=== PATIENT | male | born 1955 | race Caucasian/White ===

== ENCOUNTER 2016-10-16 07:44 | Day surgery (SDC) | payer OTHER ==
[2016-10-10 12:26] VITALS: BMI 37.2
[2016-10-16] MEDS ORDERED: PROPOFOL 20 ML ONE ×3 (08:13→09:29)
[2016-10-16] MEDS ORDERED: LIDOCAINE HCL/PF 2% SDV 5ML VIAL ONE (08:25)
[2016-10-16 09:55] VITALS: PULSE 75; TEMP 97.2
[2016-10-16 10:52] VITALS: BP 108/73
--- NOTE | 2016-10-17 13:37 | PATH ---
Surgical Pathology Report Patient Name: GURDEEP TSAI [facility]. Rec. #: [id number] /Age/Gender: 1955 (Age: 61) / M Account: [id number] Location: [facility] Taken: 10/16/2016 Received: 10/16/2016 Reported: 10/17/2016 Physicians: Barak Lipscomb M.D. Specimen(s) Received A: BX DUODENUM B: BX ANTRUM C: BX CECUM D: BX SIGMOID Clinical History Peptic ulcer disease, constipation Right upper quadrant pain, rule out celiac disease, gastritis, colonic polyps Final Diagnosis A. DUODENUM, BIOPSY: DUODENAL MUCOSA WITH NO PATHOLOGIC CHANGES. NO HISTOLOGIC EVIDENCE OF GLUTEN SENSITIVE ENTEROPATHY (CELIAC SPRUE) IDENTIFIED. B. STOMACH, ANTRUM, BIOPSY: MODERATE TO SEVERE CHRONIC ACTIVE GASTRITIS. IMMUNOSTAIN FOR H. PYLORI IS POSITIVE (MANY ORGANISMS). C. COLON, CECUM, BIOPSY: COLONIC MUCOSA WITH NO PATHOLOGIC CHANGES. D. COLON, DISTAL SIGMOID, BIOPSY: HYPERPLASTIC POLYP. Electronically Signed Patrick Damon M.D. Gross Description A. Received in formalin, labeled "duodenum" are 2 mcfarlane, irregular portions of soft tissue measuring 0.4 and 0.5 cm. in greatest dimension. The specimens are submitted in toto in one cassette. B. Received in formalin, labeled "antrum" are 2 mcfarlane, irregular portions of soft tissue measuring 0.3 and 0.4 cm. in greatest dimension. The specimens are submitted in toto in one cassette. C. Received in formalin, labeled "cecum" are 2 mcfarlane, irregular portions of soft tissue averaging 0.2 cm. in greatest dimension. The specimens are submitted in toto in one cassette. D. Received in formalin, labeled "sigmoid" is a mcfarlane, irregular portion of soft tissue measuring 0.7 cm. in greatest dimension. The specimen is submitted in toto in one cassette. 10/16/201610/16/2016
== END 2016-10-16 10:30 | disposition home or self-care (01) ==
LOC: FASU-ENDO 07:44
PROVIDERS: ATTEND Internal Medicine Gastroenterology
PROC: 0DB98ZX Excision of Duodenum, Via Natural or Artificial Opening Endoscopic, Diagnostic (ICD-10-PCS; 2016-10-16)
PROC: 0DB68ZX Excision of Stomach, Via Natural or Artificial Opening Endoscopic, Diagnostic (ICD-10-PCS; 2016-10-16)
PROC: 0DBH8ZX Excision of Cecum, Via Natural or Artificial Opening Endoscopic, Diagnostic (ICD-10-PCS; principal; 2016-10-16 09:07)
PROC: 0DBN8ZX Excision of Sigmoid Colon, Via Natural or Artificial Opening Endoscopic, Diagnostic (ICD-10-PCS; 2016-10-16 09:07)
DX: K63.5 Polyp of colon (principal); K57.30 Diverticulosis of large intestine without perforation or abscess without bleeding; K29.50 Unspecified chronic gastritis without bleeding; B96.81 Helicobacter pylori [H. pylori] as the cause of diseases classified elsewhere
CPT/HCPCS: 88305-TC; 88342-TC